=== PATIENT | female | born 1975 | race Caucasian/White ===

== ENCOUNTER 2017-04-24 11:56 | Emergency (ER) | payer OTHER ==
[~2017-04-24] VITALS: Ht 165.1 cm; Wt 137.0 kg
[2017-04-24 12:03] VITALS: BP 148/75
--- NOTE | 2017-04-24 12:07 | NUR ---
PT AMBULATED WITH HELP FROM FAMILY TO BED 2
--- NOTE | 2017-04-24 12:13 | NUR ---
PATIENT PRESENTS TO ED WITH ALLERGIC REACTION X2 DAYS AGO; FACIAL SWELLING AND RASH TO FACE AND PAIN WITH SWALLOWING HX NONEl; DENIES N/V/D; SKIN IS PINK/WARM/DRY; AAOX4 WITH EVEN AND STEADY GAIT; LUNGS CLEAR BL; HR EVEN AND REGULAR; PT DENIES ANY FEVER, CP, SOB, OR COUGH AT THIS TIME; PATIENT STATES PAIN OF 0/10 AT THIS TIME; VSS; PATIENT POSITIONED FOR COMFORT; HOB ELEVATED; BEDRAILS UP X2; BED DOWN. ER MD MADE AWARE OF PT STATUS.
[2017-04-24] MEDS ORDERED: diphenhydrAMINE 50 MG/ML VIAL IVP ONE (12:20)
[2017-04-24] MEDS ORDERED: methylPREDNISolone SS 125 MG/2 ML VIAL IVP ONE (12:20)
[2017-04-24 13:53] VITALS: BP 126/74
--- NOTE | 2017-04-24 13:53 | NUR ---
Patient discharged with v/s stable. Written and verbal after care instructions given and explained. Patient alert, oriented and verbalized understanding of instructions. Ambulatory with steady gait. All questions addressed prior to discharge. ID band removed. Patient advised to follow up with PMD. Rx of MEDROL DOSEPAK given. Patient educated on indication of medication including possible reaction and side effects. Opportunity to ask questions provided and answered.
== END 2017-04-24 13:53 | disposition home or self-care (01) ==
LOC: EDBD → MED 11:56
DX: T78.3XXA Angioneurotic edema, initial encounter (principal); R22.0 Localized swelling, mass and lump, head; L29.9 Pruritus, unspecified; X58.XXXA Exposure to other specified factors, initial encounter
CPT/HCPCS: 96372; 96374; 96375; 99284; J0171; J1200; J2930

== ENCOUNTER 2017-04-25 10:44 | Emergency (ER) | payer OTHER ==
[~2017-04-25] VITALS: Ht 160 cm; Wt 136.2 kg
[2017-04-25 11:02] VITALS: BP 143/68
--- NOTE | 2017-04-25 11:08 | NUR ---
PT AMBULATES TO BED 10
--- NOTE | 2017-04-25 11:20 | NUR ---
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 Pt seen here yesterday for same complaint. Pt sent home with methylprednisolone. Pt sts difficulty breathing since yesterday. Pt in no acute resp distress at this time. Pt also reports of 8/10 constant non radiating mid cp. Pulse vh=964% on ra. Swelling to face. No swelling to lips or tongue. Rash throughout body. Pt is aox4 with steady gait. RR are even and unlabored. Awaiting er md johnson. All need met at this time. Will continue to monitor.
--- NOTE | 2017-04-25 11:20 | NUR ---
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 Pt seen here yesterday for same complaint. Pt sent home with methylprednisolone. Pt sts difficulty breathing since yesterday. Pt in no acute resp distress at this time. Pulse dt=809% on ra. Swelling to face. No swelling to lips or tongue. Rash throughout body. Pt is aox4 with steady gait. RR are even and unlabored. Awaiting er md johnson. All need met at this time. Will continue to monitor.
[2017-04-25] MEDS ORDERED: NACL 0.9% 1,000 ML IV ONE (11:36)
[2017-04-25] MEDS ORDERED: diphenhydrAMINE 50 MG/ML VIAL IVP ONE (11:40)
[2017-04-25] MEDS ORDERED: KETOROLAC 30 MG/ML VIAL IVP ONE (11:40)
[2017-04-25] MEDS ORDERED: PROCHLORPERAZINE 10 MG/2 ML VIAL IVP ONE (11:40)
--- NOTE | 2017-04-25 12:32 | NUR ---
PT REPORTSFEELING BETTER, DECRASE IN URTICARIA. IV FLUIDS INFUSING WELL VIA PUMP. UPDATED CONDITON TO ER [facility] ARAIZA FOR DISPO
[2017-04-25 12:59] VITALS: BP 136/71
--- NOTE | 2017-04-25 13:01 | NUR ---
Patient discharged with v/s stable. Written and verbal after care instructions given and explained. Patient alert, oriented and verbalized understanding of instructions. Ambulatory with steady gait. All questions addressed prior to discharge. ID band removed. Patient advised to follow up with PMD. Rx of BENADRYL,PREDNISONE, MOTRIN given. Patient educated on indication of medication including possible reaction and side effects. Opportunity to ask questions provided and answered.
== END 2017-04-25 13:01 | disposition home or self-care (01) ==
LOC: MED 10:44
DX: L50.9 Urticaria, unspecified (principal); R51 Headache; Z90.49 Acquired absence of other specified parts of digestive tract
CPT/HCPCS: 96361; 96374; 96375; 99284; J0780; J1200; J1885; J7030